=== PATIENT | female | born 1990 | race Two or more races ===

== ENCOUNTER 2022-11-22 22:40 | Emergency (ER) | payer MEDICAID, OTHER ==
[~2022-11-22] VITALS: Ht 162.6 cm; Wt 80.0 kg
[2022-11-22 23:01] LABS: Basophils # (auto) 0.2 10 ^3/uL (0-0.2); Basophils % (auto) 1.7 % (0.0-2.0); Eosinophils # (auto) 0.1 10 ^3/uL (0-0.8); Eosinophils % (auto) 0.8 % (0.0-7.0); Lymphocytes # (auto) 2.6 10 ^3/uL (0.4-5.4); Lymphocytes % (auto) 19.6 % (10.0-50.0); Mean Corpuscular Hemoglobin 25.5 pg (28.0-32.0); Mean Corpuscular Hgb Conc. 33.4 g/dL (32.0-36.0); Mean Corpuscular Volume 76.4 fL (80.0-100.0); Monocytes # (auto) 0.8 10 ^3/uL (0-1.3); Monocytes % (auto) 6.1 % (0.0-12.0); Neutrophils # (auto) 9.6 10 ^3/uL (1.6-8.6); Neutrophils % (auto) 71.8 % (37.0-80.0); Nucleated Red Blood Cells % 0.1 %; Red Blood Cells 5.11 10^6/uL (4.0-5.20); Red Cell Distribution Width 13.9 % (11.8-14.3); White Blood Cell 13.4 10^3/uL (4.4-10.8)
[2022-11-22 23:08] VITALS: BP 182/107; RESP 20; O2SAT 97
[2022-11-22 23:18] LABS: Alanine Aminotransferase 47 U/L (7-40); Albumin 4.6 g/dL (3.2-4.8); Anion Gap 9.4 (5-15); Aspartate Aminotransferase 42 U/L (13-40); BUN/Creatinine Ratio 10.7 (10.0-20.0); Blood Urea Nitrogen 8 mg/dL (9-23); Calcium 9.2 mg/dL (8.7-10.4); Carbon Dioxide 22.6 mmol/L (20-30); Chloride 104 mmol/L (98-107); Glucose 179 mg/dL (74-106); Magnesium 1.9 mg/dL (1.6-2.6); Potassium 3.5 mmol/L (3.5-5.1); Sodium 136 mmol/L (136-145)
[2022-11-22 23:19] LABS: Bilirubin, Total 0.3 mg/dL (0.2-1.0); Total Protein 7.8 g/dL (5.7-8.2)
[2022-11-22 23:20] LABS: INR 0.95 (0.9-1.15); Partial Thromboplastin Time 27.6 SEC (24.5-34.5)
[2022-11-23 00:01] LABS: Alkaline Phosphatase 143 U/L (46-116)
[2022-11-23 01:42] VITALS: PULSE 76
[2022-11-23] MEDS ORDERED: LORazepam 0.5 MG TAB PO ONE (05:00)
== END 2022-11-23 06:45 | disposition home or self-care (01) ==
LOC: ER 22:40
DX: R07.9 Chest pain, unspecified (principal); R42 Dizziness and giddiness; F41.0 Panic disorder [episodic paroxysmal anxiety]; E11.9 Type 2 diabetes mellitus without complications; I10 Essential (primary) hypertension; R06.02 Shortness of breath
CPT/HCPCS: 36415; 71045; 80053; 83735; 83880; 84484; 85025; 85610; 85730; 93005